=== PATIENT | female | born 1960 | race Caucasian/White ===

== ENCOUNTER 2019-11-16 13:01 | Outpatient (CLI) | payer OTHER, SELFPAY ==
--- NOTE | ~2019-11-16 | XR_ITS ---
EXAMINATION: XR knee LT 3V DATE: 11/16/2019 13:40 INDICATION: Left knee pain. TECHNIQUE: 3 views of left knee were obtained. COMPARISON: Left femur radiographs 03/22/2014 FINDINGS: Bone alignment is normal. No fracture. There is mild tricompartmental osteoarthritis. No kn ee joint effusion. There is anterior knee soft tissue swelling. IMPRESSION: 1. Mild left knee osteoarthritis. Reviewed, dictated and finalized at location A.
--- NOTE | ~2019-11-16 | US_ITS ---
EXAMINATION: US venous doppler [facility] DATE: 11/16/2019 13:57 INDICATION: Left lower limb pain. TECHNIQUE: Grayscale ultrasound images without and with compression and Doppler ultrasound images of the left lower extremity veins were obtained. COMPARISON: None. FINDINGS: The visualized portions of left common femoral vein, profunda (deep) femoral vein, femoral vein, popl iteal vein, peroneal veins, posterior tibial veins, and greater saphenous vein outflow are patent. IMPRESSION: 1. No deep venous thrombosis. Reviewed, dictated and finalized at location A.
== END 2019-11-16 13:02 | disposition home or self-care (01) ==
PROVIDERS: PCP Family Medicine; Visit Provider Physician Assistant
DX: M17.12 Unilateral primary osteoarthritis, left knee (principal); M79.89 Other specified soft tissue disorders
CPT/HCPCS: 73562; 93971

== ENCOUNTER 2023-03-03 13:34 | Outpatient (CLI) | payer OTHER, SELFPAY ==
[2023-03-03 19:25] LABS: Basophils Percent Auto 0.5 % (0.2-1.2); Eosinophils Absolute Auto 0.2 K/mm3 (0-0.3); Eosinophils Percent Auto 2.7 % (0-4.4); Hematocrit 40.4 % (37.0-47.0); Hemoglobin 12.8 g/dL (12.0-15.0); Immature Granulocyte Absolute 0.02 K/mm3 (0.00-0.031); Immature Granulocyte Percent A 0.3 % (0-0.5); Lymphocytes Absolute Auto 1.39 K/mm3 (0.9-3.2); Lymphocytes Percent Auto 23.5 % (18.3-44.2); Mean Corpuscular HGB Conc 31.7 g/dl (32-36); Mean Corpuscular Hemoglobin 29.7 pg (26-34); Mean Corpuscular Volume 93.7 fl (80-100); Mean Platelet Volume 10.8 fl (7.4-10.4); Monocytes Absolute Auto 0.5 K/mm3 (0.1-0.6); Monocytes Percent Auto 8.3 % (2.6-8.5); Neutrophils Absolute Auto 3.8 K/mm3 (1.3-6.7); Neutrophils Percent Auto 64.7 % (45.5-73.1); Platelet Count Result 273 k/mm3 (150-375); Red Blood Count 4.31 M/mm3 (4.2-5.4); Red Cell Distribution Width 13.1 % (11.5-14.5); White Blood Count 5.9 K/mm3 (4.5-10.0)
[2023-03-03 20:50] LABS: Alanine Aminotransferase 28 U/L (6-35); Albumin Level 4.5 g/dL (3.5-5.1); Alkaline Phosphatase 104 U/L (38-126); Anion Gap 8 mmol/L (8-16); Aspartate Amino Transferase 43 U/L (14-36); Bilirubin,Total 0.5 mg/dL (0.2-1.3); Blood Urea Nitrogen 14 mg/dL (7-17); Calcium 9.6 mg/dL (8.4-10.2); Carbon Dioxide 28 mmol/L (22-30); Chloride 103 mmol/L (98-107); Estimated Glomerular Filt Rate > 60; Glucose 99 mg/dL (65-110); Potassium 4.5 mmol/L (3.4-5.0); Sodium 139 mmol/L (137-145)
[2023-03-03 21:56] LABS: Folic Acid 13.5 ng/mL (2.76->20)
[2023-03-03 22:28] LABS: Hemoglobin A1C 5.4 % (<5.7)
== END 2023-03-03 13:35 | disposition home or self-care (01) ==
LOC: ANHGOSHLAB 13:36
PROVIDERS: PCP Internal Medicine; Visit Provider Nurse Practitioner
DX: E78.2 Mixed hyperlipidemia (principal); R42 Dizziness and giddiness; Z13.228 Encounter for screening for other metabolic disorders; Z86.2 Personal history of diseases of the blood and blood-forming organs and certain disorders involving the immune mechanism
CPT/HCPCS: 36415; 80053; 82607; 82728; 82746; 83036; 84443; 85025

== ENCOUNTER 2023-09-18 05:54 | Day surgery (SDC) | payer OTHER, SELFPAY ==
[2023-08-19 13:04] VITALS: BMI 37.7
[2023-09-18 06:49] VITALS: BP 135/88; PULSE 114; RESP 18; TEMP 36.2; O2SAT 98; BMI 35.6
[2023-09-18] MEDS: LACTATED RINGERS 1,000 ML 150 ML IV CONT (07:16)
--- NOTE | 2023-09-18 07:18 | PM.HPGS ---
History of Present Illness History of Present Illness Consent: Risks, benefits, and alternatives have been discussed and questions answered. Patient agrees to proceed with procedure. Chief complaint: Family history of colon cancer Narrative: Kimberly Gramajo is a 62 year old female referred for colonoscopy. Patient is father had colon cancer. Patient does have a history of a benign I am hamartomatous colon polyp removed from the colon 10 years ago. Exam 5 years ago was unremarkable. Patient reports her current weight appetite and bowel movements are normal. Patient is abdominal pain. Has had no bleeding. Patient presents today for screening colonoscopy. Review of Systems Review of Systems: All systems reviewed & are unremarkable except as noted in HPI and below PMFSH Past Medical History Medical History (Updated 09/18/23 @ 07:20 by Brandon Ponce MD) Hx of breast cancer Surgical History Surgical History (Updated 08/12/23 @ 15:01 by Bridgett Kulkarni NP) History of back surgery 2019 x 2 2018 History of bilateral ligation of fallopian tubes History of knee replacement (~2011) Family History Family History Grandparent Depression Mother Hypertension Family history of malignant neoplasm of ovary Father Acute myocardial infarction, Onset Age: 50 Carcinoma of colon, Onset Age: 69 Social History Social History Smoking status: Never smoker Alcohol intake: never Substance use type: does not use Living arrangements: with family Meds Home Medications and Allergies Home Medications Medication Instructions Recorded Confirmed Type anastrozole 1 mg tablet 1 mg PO .qhs 11/16/19 09/18/23 History naproxen 500 mg tablet 500 mg PO BID #60 tabs 12/29/20 09/18/23 Rx mecobalamin (vitamin B12) 1,000 1,000 mcg sublingual DAILY 04/16/23 09/18/23 History mcg disintegrating tablet,sublingual sumatriptan succinate 100 mg See Rx Instructions PO .COMPLEX #9 04/16/23 09/18/23 Rx tablet (Imitrex) tabs citalopram 40 mg tablet See Rx Instructions .Route 04/28/23 09/18/23 Rx .COMPLEX #90 tabs lamotrigine 200 mg tablet See Rx Instructions .Route 05/12/23 09/18/23 Rx .COMPLEX #90 tabs gabapentin 400 mg capsule 400 mg PO TID #270 caps 08/11/23 09/18/23 Rx trazodone 100 mg tablet 200 mg PO DAILY #180 tabs 08/12/23 09/18/23 Rx lisinopril 20 1 tablet PO DAILY #90 tabs 09/08/23 09/18/23 Rx mg-hydrochlorothiazide 12.5 mg tablet aspirin 81 mg capsule 81 mg PO DAILY 09/15/23 09/18/23 History alprazolam 0.5 mg tablet 0.5 mg PO BID #60 tabs 09/17/23 09/18/23 Rx Allergies Allergy/AdvReac Type Severity Reaction Status Date / Time Sulfa (Sulfonamide Allergy Mild LEG RASH Verified 09/18/23 06:40 Antibiotics) PROPOXYPHENE NAPSYLATE Allergy Unknown DEPRESSION Uncoded 09/18/23 06:40 Vital Signs Vital Signs - 24 hr 09/18/23 06:49 Temperature 97.2 F L Pulse Rate 114 H Respiratory Rate 18 Blood Pressure 135/88 Pulse Oximetry 98 Oxygen Delivery Room Air Exam Narrative: Physical exam reveals patient to be alert. No signs stable. HEENT exam is unremarkable. Patient is anicteric. Lungs are clear to auscultation and to percussion. Heart is without murmur or extra sounds. Abdomen bowel sounds are present soft nontender with no organomegaly. Digital external rectal exam normal. Assessment and Plan Assessment and plan (1) Screening for colon cancer: Code(s): Z12.11 - Encounter for screening for malignant neoplasm of colon Status: Acute Assessment and Plan: He has a distant history of a benign hamartoma of the colon. (2) Family history of colon cancer in father: Code(s): Z80.0 - Family history of malignant neoplasm of digestive organs Status: Acute Assessment and Plan: Father had colon cancer. Plan for screening colonoscopy a
--- NOTE | 2023-09-18 07:24 | WPDANESEPPF ---
Anes - Initial Pre Proc Eval Procedure: Operation Date: 09/18/23 08:00 Proposed Procedures p Diagnostic Colonoscopy - Brandon Ponce MD Date/Time: 09/18/23 07:24 Surgeon: Brandon Ponce MD Pre Op Diagnosis: Family history of colon cancer Patient Data Age: 62 Gender: F Height: 1.63 m Weight: 94.3 kg Last Vital Signs Temp 36.2 C L 09/18/23 06:49 Pulse 114 H 09/18/23 06:49 Resp 18 09/18/23 06:49 BP 135/88 09/18/23 06:49 Pulse Ox 98 09/18/23 06:49 O2 Del Method Room Air 09/18/23 06:49 Allergies Allergy/AdvReac Type Severity Reaction Status Date / Time Sulfa (Sulfonamide Allergy Mild LEG RASH Verified 09/18/23 06:40 Antibiotics) PROPOXYPHENE NAPSYLATE Allergy Unknown DEPRESSION Uncoded 09/18/23 06:40 Home Medications Medication Instructions Recorded Confirmed Type anastrozole 1 mg tablet 1 mg PO .qhs 11/16/19 09/18/23 History naproxen 500 mg tablet 500 mg PO BID #60 tabs 12/29/20 09/18/23 Rx mecobalamin (vitamin B12) 1,000 1,000 mcg sublingual DAILY 04/16/23 09/18/23 History mcg disintegrating tablet,sublingual sumatriptan succinate 100 mg See Rx Instructions PO .COMPLEX #9 04/16/23 09/18/23 Rx tablet (Imitrex) tabs citalopram 40 mg tablet See Rx Instructions .Route 04/28/23 09/18/23 Rx .COMPLEX #90 tabs lamotrigine 200 mg tablet See Rx Instructions .Route 05/12/23 09/18/23 Rx .COMPLEX #90 tabs gabapentin 400 mg capsule 400 mg PO TID #270 caps 08/11/23 09/18/23 Rx trazodone 100 mg tablet 200 mg PO DAILY #180 tabs 08/12/23 09/18/23 Rx lisinopril 20 1 tablet PO DAILY #90 tabs 09/08/23 09/18/23 Rx mg-hydrochlorothiazide 12.5 mg tablet aspirin 81 mg capsule 81 mg PO DAILY 09/15/23 09/18/23 History alprazolam 0.5 mg tablet 0.5 mg PO BID #60 tabs 09/17/23 09/18/23 Rx Patient hx anesthesia problems: none Family hx anesthesia problems: none Results Review: All pre-operative results and documents have been reviewed as part of the pre-operative evaluation. [facility] Past Medical History Medical History (Updated 09/18/23 @ 07:20 by Brandon Ponce MD) Hx of breast cancer Surgical History Surgical History History of back surgery 2019 x 2 2018 History of bilateral ligation of fallopian tubes History of knee replacement (~2011) Family History Family History Grandparent Depression Mother Hypertension Family history of malignant neoplasm of ovary Father Acute myocardial infarction, Onset Age: 50 Carcinoma of colon, Onset Age: 69 Social History Social History Smoking status: Never smoker Alcohol intake: never Substance use type: does not use Living arrangements: with family Anes - Eval Final PreProcedure Day of Procedure 09/18/23 07:24 Patient weight: normal Heart: regular rate and rhythm Lungs: clear to auscultation Airway: Mallampati scale class II Neurological: alert and oriented Last oral intake: >/= 8 hours ASA classification: III Emergent: no Anesthetic plan: proceed Anesthesia type and monitoring: general GIVS and standard monitoring Results Review: All pre-operative results and documents have been reviewed as part of the pre-operative evaluation. Informed Consent: The patient's anesthetic plan and its attendant risks and benefits were discussed with the patient/family/POA. Questions were solicited and answers provided to the satisfaction of the patient/family/POA.
[2023-09-18 07:58] VITALS: BP 82/45; PULSE 90; RESP 14; O2SAT 93
[2023-09-18 08:08] VITALS: BP 102/64; PULSE 89; RESP 16; O2SAT 94
[2023-09-18 08:18] VITALS: BP 110/75; PULSE 92; RESP 16; O2SAT 96
--- NOTE | 2023-09-18 08:20 | WPDANESPN ---
Anes - Prog Note Post-Op Date/Time: 09/18/23 08:20 Cardiovascular status: normal Respiratory status: normal Airway patency: baseline Mental status: baseline Post-Op hydration status: normal Vital Signs: Last Vital Signs Temp 36.2 C L 09/18/23 06:49 Pulse 89 09/18/23 08:08 Resp 16 09/18/23 08:08 BP 102/64 09/18/23 08:08 Pulse Ox 94 09/18/23 08:08 O2 Del Method Room Air 09/18/23 08:08 Pain Score (VAS): 0/10 I/O: Intake & Output 09/17/23 09/18/23 09/18/23 23:59 07:59 15:59 Intake Total 300 100 Balance 300 100 Patient Feedback: Patient satisfied with anesthetic care.
== END 2023-09-18 08:25 | disposition home or self-care (01) ==
PROVIDERS: PCP Nurse Practitioner; Visit Provider Internal Medicine Gastroenterology
PROC: 0DJD8ZZ Inspection of Lower Intestinal Tract, Via Natural or Artificial Opening Endoscopic (ICD-10-PCS; CPT 45378; principal; 2023-09-18 08:00)
DX: Z80.0 Family history of malignant neoplasm of digestive organs (principal)
CPT/HCPCS: 45378

== ENCOUNTER 2024-08-11 08:04 | Outpatient (CLI) | payer OTHER, SELFPAY ==
--- OUTSIDE RECORDS SUMMARY | 2024-08-11 08:09 | XMS_ITS ---
Author Organization [facility] Address [address] [place] [address] Care Team Providers Care D[employer]ified Crops Supervisor Name Role Phone Krissy Viveros MD Primary Care Provider Marychuy Pepe MD Unavailable [phone] Active Problems Problem Noted Date Diagnosed Date History of breast cancer 09/11/2019 Absence of breast, acquired, bilateral 0 Overview (08/25/2019): Added automatically from request for surgery [id number] Abdominal wall abscess at site of surgical wound 03/12/2019 Assessment & Plan (04/15/2019 7:55 PM WOOD MODEL BUILDER): Summary: 58 y.o. female w/PMH of R-TKA (2012), lumbar SF (2016) and breast cancer s/p L-mastectomy f/b immediate reconstruction w/flap (02/04/19), and recent admission for post-surgical abdominal Pseudomonas aeruginosa (moss-sensitive) wall abscess. Current antibiotic regimen is: Ciprofloxaxin 750 mg po q12h + Metronidazole 500 mg po q8h Start date: 03/12/2019 Due date: today Completed 3 weeks of therapy after drain removal on 03/22/19 Adverse effects from antibiotics: nausea/mild diarrhea. PLAN - Stop treatment regimen today -- firm stop - No need for further ID follow-up. RTC PRN Assessment & Plan (03/14/2019 11:48 AM WOOD MODEL BUILDER): 58 y.o. female w/PMH of R-TKA (2013), lumbar SF (2017) and recently diagnosed breast cancer s/p L-mastectomy f/b immediate reconstruction w/flap (02/04/19), now admitted with a post-surgical SSTI w/SC abscess. - CT A/P (03/11): 8x17x3 cm SC fluid collection with asscociated SC edema. - s/p MSK IRG-guided drain placement (03/12). - Fluid aspiration cx (03/12): pansensitIve Pseudomonas aeruginosa. PSAR post-surgical abdominal wall abscess w/drain in place for soruce control. Given that abscess are usually polymicrobial and anaerobes are the main bicycle taxi driver of abscesses, would favor metronidazole for anaerobic coverage along with PO cipro targeting the pansensitIve PSAR PLAN - discontinue ceftriaxone and vancomycin - start metronidazole 500 mg PO q8h - Recommend one dose of cefepime 2g IV while awaiting ECG to evaluate baseline QTc - If QTc < 500 ms, then would recommend a 3-4 week course of antimicrobials (up to one week after drain removal) with: --> Ciprofloxacin 750 mg PO q12h --> Metronidazole 500 mg PO q8h - Scheduled per IR to get drain check on 03/22. - Thank-you for the opportunity to participate in the care of this patient. Infectious Diseases will sign off and arrange follow-up in the ID clinic in 2-3 weeks. Please contact the Team 3 ID Attending at [phone] with any questions or concerns. After hours, the ID fellow long distance billing operator can be reached at [phone]. Malignant neoplasm of left b reast in female, estrogen receptor positive 01/11/2019 Cancer Staging:Pathologic:Stage IA(pT1b, pN0, cM0, G1, ER+, GA+, HER2-) - Signed by Marychuy Pepe MD on 03/08/2019 Overview (01/11/2019): Added automatically from request for surgery [id number] Acquired absence of left breast and nipple 01/11 Overview (02/06/2019): Added automatically from request for surgery [id number] Bipolar 1 disorder 12/30/2018 Preoperative clearance 12/30/2018 Abnormal mammogram of left breast 11/26/2018 Spondylolisthesis of lumbosacral region 09/02/19 18 Facet arthropathy, lumbosacral 08/18/2016 Right sided sciatica 08/18/2016 Disc degeneration, lumbar 03/31/2016 Current Treatment and Therapy Plans No current plan information found. Past Treatment and Therapy Plans No past plan information found. Lifetime Dose Tracking * Chemical Lifetime Dose Automatic Entry Manual Entr y Fluoro Time 1.1 minutes 1.1 minutes 0 minutes Air kerma at the reference point (Ka,r) 7 mGy 7 mGy 0 mGy
--- OUTSIDE RECORDS SUMMARY | 2024-08-11 08:09 | XMS_ITS | Referral Summary ---
Author Organization [facility] Address [address] [place] [address] Care Team Providers Care Pick Remover Name Role Phone Krissy Viveros MD Primary Care Provider [phone] Marychuy Pepe MD Unavailable [phone] Encounters Date Type Department Care Team Description 06/11/2024 Results Follow-Up [facility] Surgery [address] [place] [phone] Kimberly Ventura NP 06/11/2024 12:00 PM CDT - 06/11/2024 11:59 PM CDT Hospital Encounter [facility] - Breast Imaging [address] [place] [phone] History of breast cancer Discharge Disposition: Discharge to home or self care 06/11/2024 10:11 AM CDT - 06/11/2024 11:59 PM CDT Hospital Encounter [facility] [address] [place] [phone] History of breast cancer Discharge Disposition: Discharge to home or self care 06/11/2024 11:30 AM CDT Office Visit [facility] Surgery [address] [place] [phone] Kimmie Gordon NP Encounter for follow-up surveillance of breast cancer (Primary Dx); Encounter for screening mammogram for malignant neoplasm of breast; History of breast cancer 05/17/2024 Telephone [facility] Surgery [address] [place] [phone] Katie Rosa, RMA from Last 3 Months Allergies Active Allergy Reactions Criticality Noted Date Comments Sulfa (Sulfonamide Antibiotics) Rash Medium 07/30 Medications lamoTRIgine (LaMICtal) 200 mg tabletIndicatio ns:Depression associated with Bipolar Disorder Take 1 tablet (200 mg total) by mouth every morning 3 9 Active gabapentin (NEURONTIN) 400 mg capsuleIndicati ons:Neuropathic Pain Take 1 capsule (400 mg total) by mouth 3 times daily Active propranolol (INDERAL) 20 mg tabletIndicatio ns:hypertension ,Migraine Prevention Take 1 tablet (20 mg total) by mouth 2 (two) times a day 2 9 Active traZODone (DESYREL) 100 mg tabletIndicatio ns:major depressive disorder Take 1.5 tablets (150 mg total) by mouth nightly 2 9 Active aspirin 81 mg enteric coated tablet Take 1 tablet (81 mg total) by mouth daily 30 tablet 11 9 Active Additional Information Patient taking differently:81 mg oralEvery morning, Indications: Myocardial Reinfarction Prevention, Informant: Self, Reported on 09/07/2019 calcium phosphate trib/vit D3 (CALTRATE GUMMY BITES ORAL) Take 1 tablet/chew tab by mouth 2 (two) times a day Active clindamycin (CLEOCIN T) 1 % lotion Apply 60 Applications topically 2 (two) times a week 2 Active ALPRAZolam (XANAX) 0.5 mg tablet Take 1 tablet (0.5 mg total) by mouth daily 2 Active citalopram (CeleXA) 40 mg tablet Take 1 tablet (40 mg total) by mouth daily 2 Active lisinopril-hydr oCHLOROthiazide (ZESTORETIC) 20-12.5 mg per tablet Take 1 tablet by mouth daily 4 Active predniSONE (DELTASONE) 10 mg tablet Take 1 tablet (10 mg) by mouth daily 4 Active anastrozole (ARIMIDEX) 1 mg tabletIndicatio ns:Malignant neoplasm of left breast in female, estrogen receptor positive, unspecified site of breast (HCC) Take 1 tablet (1 mg total) by mouth daily 90 tablet 3 4 12/10/19 25 Active Active Problems Problem Noted Date Diagnosed Date History of breast cancer 09/11/2019 Absence of breast, acquired, bilateral 0 Overview (08/25/2019): Added automatically from request for surgery [id number] Abdominal wall abscess at site of surgical wound 03/12/2019 Assessment & Plan (04/15/2019 7:55 PM VP PUBLIC RELATIONS): Summary: 58 y.o. female w/PMH of R-TKA [...] PRN Assessment & Plan (03/14/2019 11:48 AM VP PUBLIC RELATIONS): 58 y.o. female w/PMH of R-TKA (2012), lumbar SF (2016) and recently diagnosed breast cancer s/p L-mastectomy [...] usually polymicrobial and anaerobes are the main show horse driver of abscesses, would favor metronidazole for [...] contact the Team 3 ID Attending at [phone] with any questions or concerns. After hours, the ID fellow pediatric oncology nurse can be reached at [phone]. Malignant neoplasm of left b reast in female, estrogen receptor positive 01/11/2019 Cancer Staging:Pathologic:Stage IA(pT1b, pN0, cM0, G1, ER+, WV+, HER2-) - Signed by Marychuy Pepe MD on 03/08/2019 Overview (01/11/2019): Added automatically from request for surgery [id number] Acquired absence of left breast and nipple 01/11 Overview (02/06/2019): Added automatically from request for surgery [id number] Bipolar 1 disorder 12/30/2018 Preoperative clearance 12/30/2018 Abnormal mammogram of left breast 11/26/2018 Spondylolisthesis of lumbosacral region 09/02/19 18 Facet arthropathy, lumbosacral 08/18/2016 Right sided sciatica 08/18/2016 Disc degeneration, lumbar 03/31/2016 Immunizations Immunization Administration Dates Next Due Influenza, Quadrivalent, Yany l Culture-based MDCK, Preservative Free, Antibiotic Free, Intramuscular 04/13/2019 Influenza, Quadrivalent, Spl it, Preservative Free, Intramuscular 01/27/2020,12/15/2013 Influenza, Trivalent, IM (MDV) 12/30/2015 Td, adsorbed 10/19/2018 Social History Tobacco Use Types Packs/Day Years Used Date Smoking Tobacco: Never Smokeless Tobacco: Never Tobacco Cessation:Counseling Given: Not Answered Alcohol Use Standard Drinks/Week Comments Yes 0 (1 standard drink = 0.6 oz pur e alcohol) rare AUDIT-C Answer Date Recorded Frequency of Alcohol Consumption 2-4 times a fri12/17/2018 Average Number of Drinks Not on file 019 Frequency of Binge Drinking Not on file 11/29 Comments No Sex and Gender Information Value Date Recorded Sex Assigned at Not on file Legal Sex Female 12:14 AM VP PUBLIC RELATIONS Gender Identity Female 08/23/2020 11:17 AM CDT Sexual Orientation Straight 08/23/2020 11 :17 AM CDT Last Filed Vital Signs Vital Sign Reading Time Taken Comments Blood Pressure 143/89 01/30/2024 3:09 PM CDT Pulse 96 01/30/2024 3:09 PM CDT Temperature 36.7 C (98.1 F) 01/30/2024 3:09 PM CDT Respiratory Rate 19 10/31/2023 1:39 PM CDT Oxygen Saturation 97% 01/30/2024 3:09 PM CDT Inhaled Oxygen Concentration - - Weight 95.3 kg (210 lb) 06/11/2024 12:46 PM CDT Height 160 cm (5' 3 ) 06/11/2024 12:46 PM CDT Body Mass Index 37.2 06/11/2024 12:46 PM CDT Plan of Treatment Not on file Medical Devices Implanted Type Area Marine Diesel Mechanic Device Identifier Shelf Expiration Date Model / Serial / Lot Rt Total Knee Arthroplasty Right: Knee [employer] [id number] [place] Microvascular 2.5mm Ring Pin Protective Cover Jaw Assembly Latex Free - [id number] Implanted:Qty: 1 on 02/04/2019 by Gene Sultana MD at [facility] Left: Breast [employer] [facility] 11/25/2023 [id number] / / [id number] [employer] [id number] [place] Microvascular 2mm Ring Pin Protective Cover Jaw Assembly Latex Free - [id number] Implanted:Qty: 1 on 02/04/2019 by Gene Sultana MD at [facility] Left: Breast [employer] [facility] 11/12/2023 [id number] / / [id number] [employer] [id number] [place] Microvascular 2mm Ring Pin Protective Cover Jaw Assembly Latex Free - [id number] Implanted:Qty: 1 on 02/04/2019 by Gene Sultana MD at [facility] Left: Breast [place] [employer] [place] [id number] 07/30/2023 [id number] / / [id number] [employer] [place]ian [id number] [place] 2mm Ring Pin Ultrasonic Doppler 20mhz Administrative Support Specialist Anastomosis Latex Free - [id number] Implanted:Qty: 1 on 02/04/2019 by Gene Sultana MD at [facility] Left: Breast [employer] [place] [id number] 11/18/2023 [id number] / / [id number] Description:Not an ultrasoni c doppler, this is a GEM Clip Procedures Procedure Name Priority Date/Time Associated Diagnosis Comments SCREENING MAMMOGRAM RIGHT W PHILIPP UNILATERAL ONLY Schedule Routine, Read Routine (OP Routine) 06/11/2024 1:24 PM CDT History of breast cancer MRI BREAST BILATERAL W WO CONTRAST Schedule Routine, Read Routine (OP Routine) 06/11/2024 12:05 PM CDT History of breast cancer from Last 3 Months Results * Screening Mammogram Right W Philipp Unilateral Only (06/11/2024 1:24 PM CDT) Anatomical Region Laterality Modality Breast Right Mammography Narrative 06/14/2024 7:49 AM CDT Mammogram Technique: Right Breast Digital Breast Tomosynthesis, Unilateral C-view 2D Screening mammogram. Views obtained: right craniocaudal and right mediolateral oblique. Computer Aided Detection was performed. Mammogram Findings: The present examination has been compared to prior imaging studies performed at [facility] on 02/17/2020, 04/26/2021, 06/05/2022 and 06/11/2023. The breast is almost entirely fatty. There is no suspicious abnormality in the right breast. There are no significant changes from the prior study. Patient has personal history of reduction mammoplasty in the right breast. There is no suspicious abnormality in the right breast. Patient status post contralateral mastectomy for personal history of breast cancer. Impression: There is no mammographic evidence of malignancy. Annual screening mammography is recommended. OVERALL FINAL ASSESSMENT: BI-RADS CATEGORY 2: Benign. Procedure Note Nikki Erwin MD - 06/14/2024 Mammogram Technique: Right Breast Digital Breast Tomosynthesis, Unilateral C-view 2DScreening mammogram. Views obtained: right craniocaudal and right mediolateral oblique. Computer Aided Detection was performed. Mammogram Findings: The present examination has been compared to prior imaging studies performed at [facility] on 02/17/2020, 04/26/2021,06/05/2022 and 06/11/2023. The breast is almost entirely fatty. There is no suspicious abnormality in the right breast. There are no significant changes from the prior study. Patient has personal history of reduction mammoplasty in the rightbreast. There is no suspicious abnormality in the right breast. Patient status post contralateral mastectomy for personal history ofbreast cancer. Impression: There is no mammographic evidence of malignancy. Annual screening mammography is recommended. OVERALL FINAL ASSESSMENT: BI-RADS CATEGORY 2: Benign. Kimmie Gordon NP IM MAMMO PROCEDURES Final Res ult * MRI Breast Bilateral W WO Contrast (06/11/2024 12:05 PM CDT) Anatomical Region Laterality Modality Breast Bilateral Magnetic Resonan ce 06/11/2024 1:24 PM CDT Impressions 06/11/2024 1:24 PM CDT 1. No suspicious enhancement in either breast. OVERALL FINAL ASSESSMENT: BI-RADS Category 2: Benign. RECOMMENDATION: Annual screening mammography, with screening breast MRI if clinically indicated, are recommended. Electronically signed by: Rhonda Marrufo M.D. Narrative 06/11/2024 1:24 PM CDT EXAMINATION: 1. MRI EXAMINATION OF THE BREASTS WITH AND WITHOUT CONTRAST 2. 3D POST PROCESSING ON A DEDICATED 3D WORKSTATION HISTORY: There is screening, patient is a 62-year-old woman who had prior left mastectomy and reconstruction for left breast cancer in 2019. Patient has also had a right breast reduction. Patient is also here for short-term interval follow-up of an MRI finding in the right breast. TECHNIQUE: MRI examination of the breasts per breast tumor protocol with and without gadolinium contrast. A dedicated breast imaging coil was used. The images were transferred to a breast CAD system for 3D post processing and contrast kinetics analysis. CONTRAST: Gadoterate meglumine, 16 ml COMPARISON: 12/12/2023, mammogram dated 06/11/2023 BREAST COMPOSITION: Almost entirely fat BACKGROUND PARENCHYMAL ENHANCEMENT: Minimal FINDINGS: There is no suspicious enhancement in either breast. The previously noted focus of enhancement in the upper central right breast does not enhance on today's examination. Postsurgical changes of right breast reduction and left mastectomy with soft tissue flap reconstruction are noted. No abnormally enlarged lymph nodes are identified in the visualized portions of either axilla. Procedure Note Rhonda Marrufo MD - 06/11/2024 EXAMINATION: 1. MRI EXAMINATION OF THE BREASTS WITH AND WITHOUT CONTRAST 2. 3D POST PROCESSING ON A DEDICATED 3D WORKSTATION HISTORY: There is screening, patient is a 62-year-old woman who had prior left mastectomy and reconstruction for left breast cancer in 2019. Patient has also had a right breast reduction. Patient is also here for short-term interval follow-up of an MRI finding in the right breast. TECHNIQUE: MRI examination of the breasts per breast tumor protocol with and without gadolinium contrast. A dedicated breast imaging coil was used. The images were transferred to a breast CAD system for 3D post processing and contrast kinetics analysis. CONTRAST: Gadoterate meglumine, 16 ml COMPARISON: 12/12/2023, mammogram dated 06/11/2023 BREAST COMPOSITION: Almost entirely fat BACKGROUND PARENCHYMAL ENHANCEMENT: Minimal FINDINGS: There is no suspicious enhancement in either breast. The previously noted focus of enhancement in the upper central right breast does not enhance on today's examination. Postsurgical changes of right breast reduction and left mastectomy with soft tissue flap reconstruction are noted. No abnormally enlarged lymph nodes are identified in the visualized portions of either axilla. IMPRESSION: 1. No suspicious enhancement in either breast. OVERALL FINAL ASSESSMENT: BI-RADS Category 2: Benign. RECOMMENDATION: Annual screening mammography, with screening breast MRI if clinically indicated, are recommended. Electronically signed by: Rhonda Marrufo M.D. Kimberly Ventura NP IMG MRI PROCEDURES Final R esult from Last 3 Months Insurance [facility] CHOICE [facility] HMO/PPO Address: [id number] [place] [address] [facility] CHOICE PLUS [facility] H[facility]/PPO Address: [place] [address] [facility] HMO [facility] HMO Advance Directives For more information, please contact: [phone] Documents on File Type Date Recorded Patient Primary Teaching Assistant Expl anation Advance Directives and Livin g Will 06/11/2024 10:10 AM * Full Code (Latest Code Status on File) Date Activated Date Inactivated Comments 03/22/2019 10:20 AM 03/22/2019 5:07 PM * Full Code Date Activated Date Inactivated Comments 03/11/2019 10:48 PM 03/14/2019 10:36 PM * Full Code Date Activated Date Inactivated Comments 02/04/2019 6:44 PM 02/10/2019 3:38 PM Care Teams Pick Remover Relationship Specialty Start Date End Date Krissy Viveros MD [address] [place] [address] PCP - General 08/26/17 Marychuy Pepe MD [address] [place] [address] Medical Oncologist/Mica Spreader Medical Oncology 11/11/19
--- OUTSIDE RECORDS SUMMARY | 2024-08-11 08:09 | XMS_ITS | Clinical Summary ---
Author Organization [facility] Art Qual[facility] Address [address] [place] [address] Care Team Providers Care Strength And Conditioning Coach Name Role Phone Krissy Viveros MD Primary Care Provider [phone] Source Comments [facility],non-owned Affiliates and Associated Physician Practices is amultiple site organization consisting of ambulatory clinics and hospital sitesin [place], [place], [place] and [place]. This disclosure is being madepursuant to the Care Everywhere program and may not contain all information available regarding this patient. Last updated 17.[facility] Allergies Active Allergy Reactions Criticality Noted Date Comments Sulfa Drugs Rash Medium 06/12/2017 Social History Tobacco Use Types Packs/Day Years Used Date Smoking Tobacco: Never Assessed Sex and Gender Information Value Date Recorded Sex Assigned at Not on file Legal Sex Male 12:31 PM [employer] Gender Identity Not on file Sexual Orientation Not on file Plan of Treatment Health Maintenance Due Date Last Done Comments COLOGUARD (AGES 45-75) - COL ON CA SCREENING 1961 COLON MONITORING 1961 COLONOSCOPY - COLON CA SCREENING 1961 CT COLONOGRAPHY - COLON CA SCREENING 1961 Colorectal Cancer Screening 1961 FIT - COLON CA SCREENING 1961 FLEX SIG - COLON CA SCREENING 1961 LIPID TESTING 1961 HIV SCREENING 1976 HEPATITIS C SCREENING 12/14/1979 DTAP/TDAP/TD VACCINES (1 - Tdap) 1980 PNEUMOCOCCAL VACCINE 50+ (1 of 1 - PCV) 12/19/2011 ZOSTER VACCINE (1 of 2) 12/19/2011 COVID-19 VACCINE ( - 2023-2 5 season) 2023 DEPRESSION SCREENING 03/31/2024 INFLUENZA VACCINE (Season Ended) 2024 Respiratory Syncytial Virus (RSV) Vaccine Pt: or over 60 yrs (1 - 1-dose 75+ series) 2036 HEPATITIS B VACCINE Aged Out No longe r eligible based on patient's age to complete this topic HIB VACCINE Aged Out No longer eligi ble based on patient's age to complete this topic HPV VACCINE Aged Out No longer eligi ble based on patient's age to complete this topic MENINGOCOCCAL (Group B) VACC INE SHARED DECISION-MAKING Aged Out No longer eligibl e based on patient's age to complete this topic MENINGOCOCCAL GROUPS A/C/Y/W VACCINE Aged Out No longer eligible b ased on patient's age to complete this topic Insurance [facility] Care Teams Strength And Conditioning Coach Relationship Specialty Start Date End Date Krissy Viveros MD PCP - General Family Medicine 03/19/12
--- OUTSIDE RECORDS SUMMARY | 2024-08-11 08:09 | XMS_ITS ---
(Home) [address] [place] [address] [facility] CHOICE [facility] HMO/PPO Address: [address] [address] [place] [address] [facility] HMO [facility] O Advance Directives For more information, please contact: [phone] Documents on File Type Date Recorded Patient Supervisor Bindery Expl anation Advance Directives and Livin g Will 06/11/2024 10:10 AM * Full Code (Latest Code Status on File) Date Activated Date Inactivated Comments 03/22/2019 10:20 AM 03/22/2019 5:07 PM * Full Code Date Activated Date Inactivated Comments 03/11/2019 10:48 PM 03/14/2019 10:36 PM * Full Code Date Activated Date Inactivated Comments 02/04/2019 6:44 PM 02/10/2019 3:38 PM Care Teams Pizza Maker Relationship Specialty Start Date End Date Krissy Viveros MD [address] [place] [address] PCP - General 08/26/17 Marychuy Pepe MD [address] [place] [address] Medical Oncologist/Solder Making Supervisor Medical Oncology 11/11/19 Clinical Summary Created on: August 11, 2024 Kimberly Vicotria : 1960 Sex: Female Author Organization [facility] Address [address] [place] [address] Care Team Providers Care Pizza Maker Name Role Phone Krissy Viveros MD Primary Care Provider [phone] Marychuy Pepe MD Unavailable [phone] Allergies Active Allergy Reactions Criticality Noted Date [...] (08/25/2019): Added automatically from request for surgery [id number] Abdominal wall abscess at site of surgical wound 03/12/2019 Assessment & Plan (04/15/2019 7:55 PM BOUFFANT CURTAIN MACHINE TENDER): Summary: 58 y.o. female w/PMH of R-TKA [...] PRN Assessment & Plan (03/14/2019 11:48 AM BOUFFANT CURTAIN MACHINE TENDER): 58 y.o. female w/PMH of R-TKA (2012), [...] usually polymicrobial and anaerobes are the main milk wagon driver of abscesses, would favor metronidazole for [...] contact the Team 3 ID Attending at [phone] with any questions or concerns. After hours, the ID fellow airfield operations specialist can be reached at [phone]. Malignant neoplasm of left b reast in female, estrogen receptor positive 01/11/2019 Cancer Staging:Pathologic:Stage IA(pT1b, pN0, cM0, G1, ER+, DE+, HER2-) - Signed by Marychuy Pepe MD on 03/08/2019 Overview (01/11/2019): Added automatically from request for surgery [id number] Acquired absence of left breast and nipple 01/11 Overview (02/06/2019): Added automatically from request for surgery [id number] Bipolar 1 disorder 12/30/2018 Preoperative clearance 12/30/2018 Abnormal mammogram of left breast 11/26/2018 Spondylolisthesis of lumbosacral region 09/02/19 18 Facet arthropathy, lumbosacral 08/18/2016 Right sided sciatica 08/18/2016 Disc degeneration, lumbar 03/31/2016 Encounters Date Type Department Care Team Description 06/11/2024 12:00 PM CDT - 06/11/2024 11:59 PM CDT Hospital Encounter [facility] - Breast Imaging [address] [facility] [address] [place] [address] History of breast cancer Discharge Disposition: Discharge to home or self care 06/11/2024 11:30 AM CDT Office Visit [facility] Surgery [address] [place] [address] [address] [place] [phone] Kimmie Gordon, AAKASH Encounter for follow-up surveillance of breast cancer (Primary Dx); Encounter for screening mammogram for malignant neoplasm of breast; History of breast cancer 06/11/2024 10:11 AM CDT - 06/11/2024 11:59 PM CDT Hospital Encounter [facility] [address] [place] [address] History of breast cancer Discharge Disposition: Discharge to home or self care 06/11/2024 Results Follow-Up [facility] Surgery [address] [place] [address] [address] [place] [phone] Kimberly Ventura NP 05/17/2024 Telephone [facility] Surgery [address] [place] [phone] Katie Rosa RMA from Last 3 Months Immunizations Immunization Administration Dates Next Due Influenza, Quadrivalent, Yany l Culture-based MDCK, Preservative Free, Antibiotic Free, Intramuscular 04/13/2019 Influenza, Quadrivalent, Spl it, Preservative Free, Intramuscular 01/27/2020,12/15/2013 Influenza, Trivalent, IM (MDV) 12/30/2015 Td, adsorbed 10/19/2018 Surgical History Surgery Date Site/Laterality Comments SPINAL FUSION 03/31/2016 - 03/30/2017 lumbar REPLACEMENT TOTAL KNEE 03/31/2011 - 03/30/2012 Right TUBAL LIGATION 03/31/1987 - 03/30/1988 BREAST BIOPSY 12/04/2018 Left BACK SURGERY 03/31/2018 - 04/30/2018 FLUID DRAIN SOFT TISSUE 03/12/2019 N/A ABSCESS CATHETER INJECTION 03/22/2019 N/A RECONSTRUCTION BREAST W/ TRA M FLAP 02/04/2019 Left Mastectomy BREAST SURGERY 02/04/2019 Left Exploration BREAST SURGERY 02/08/2019 Left Debridement Medical History Medical History Date Comments Hypertension Headache Arthritis Bipolar disorder (HCC) Breast cancer (HCC) left Migraine headache PONV (postoperative nausea and vomiting) controlled with medication Family History Medical History Relation Name Comments Kidney disease Daughter Family histor y of kidney disease - (Added by TW Conv) Colon cancer Father Family history of malignant neoplasm - (Added by TW Conv) Heart disease Father onset age late 40s Mental illness Maternal Grandfather FH: m ental illness - Relation: Grandfather (Added by Conv) Prostate cancer Maternal Grandfather Ovarian cancer Mother Family histor y of malignant neoplasm - (Added by TW Conv) Prostate cancer Mother's Brother Heart disease Other Family history of cardiac disorder - Relation: Grandmother (Added by TW Conv) Seizures Sister 1 Family history of seizures - (Added by TW Conv) Alcohol abuse Sister 2 Family history of alcoholism - (Added by Conv) Anesthesia problems Neg Hx Relation Name Status Comments Daughter Father Maternal Grandfather Mother Mother's Brother Other Sister 1 Sister 2 Social History Tobacco Use Types Packs/Day Years [...] on file Legal Sex Female 12:14 AM BOUFFANT CURTAIN MACHINE TENDER Gender Identity Female 08/23/2020 11:17 AM CDT Sexual Orientation Straight 08/23/2020 11 :17 AM CDT Obstetrics History Para Term AB IAB SAB Ectopic Multiple Livin g Live Births 2 2 2 Date Outcome GA Total Labor Labor/2nd/3rd Weight Sex Type Anes PTL Corry A1 A5 Name Clin Para Para Last Filed Vital Signs Vital Sign Reading [...] 06/11/2024 12:46 PM CDT Plan of Treatment Health Maintenance Due Date Last Done Comments Cervical Cancer Screening 1960 Colon Cancer Screening-Colonoscopy 1960 Depression Screening 1960 Hepatitis C Screening 1960 Hepatitis B Screening 12/19/1979 Regular Well Visit/Exam 18-64 12/19/1979 Pneumococcal vaccine <65 (1 of 2 - PCV) 1980 Zoster Vaccine (1 of 2) 1980 DTaP/Tdap/Td Vaccine (1 - Tdap) 10/20/2018 9 Influenza Vaccine (Season Ended) 2024 01/27/2020, 04/13/2019, 12/30/2015, Additional history exists Breast Cancer Screening-Mammogram 06/11/2025 06/11/2024, 06/11/2023, 06/05/2022, Additional history exists Medical Devices Implanted Type Area Movers Device Identifier Shelf Expiration Date Model / Serial / Lot Rt Total Knee Arthroplasty Right: Knee Synovis [employer] Allian [id number] Beckham Microvascular 2.5mm Ring Pin Protective Cover Jaw Assembly Latex Free - [id number] Implanted:Qty: 1 on 02/04/2019 by Gene Sultana MD at [facility] Left: Breast Synovis Micro [employer]Reef Allian 11/25/2023 [id number] / / [id number] [employer]is [employer] Allian [id number] Beckham Microvascular 2mm Ring Pin Protective Cover Jaw Assembly Latex Free - [id number] Implanted:Qty: 1 on 02/04/2019 by Gene Sultana MD at [facility] Left: Breast Synovis Micro [employer]Re[employer] Allian 11/12/2023 [id number] / / [id number] Synovis [employer] Allian [id number] Beckham Microvascular 2mm Ring Pin Protective Cover Jaw Assembly Latex Free - [id number] Implanted:Qty: 1 on 02/04/2019 by Gene Sultana MD at [facility] Left: Breast Synovis Micro [employer]Reef Allian [id number] 07/30/2023 [id number] / / [id number] OnetoOnetext Allian [id number] Beckham 2mm Ring Pin Ultrasonic Doppler 20mhz Pickle Water Pump Operator Anastomosis Latex Free - [id number] Implanted:Qty: 1 on 02/04/2019 by Gene Sultana MD at [facility] Left: Breast OnetoOnetext Taina [id number] 11/18/2023 [id number] / / [id number] Description:Not an ultrasoni c doppler, this is [...] compared to prior imaging studies performed at [facility] on 02/17/2020, 04/26/2021, 06/05/2022 and 06/11/2023. The [...] compared to prior imaging studies performed at [facility] on 02/17/2020, 04/26/2021,06/05/2022 and 06/11/2023. The breast [...] by: Rhonda Marrufo M.D. Kimberly Ventura NP IM MRI PROCEDURES Final R esult from Last 3 Months Insurance [facility] CHOICE [facility] H[facility]/PPO Address: [place] [address]
--- OUTSIDE RECORDS SUMMARY | 2024-08-11 08:09 | XMS_ITS | Encounter Summary ---
Author Organization [facility] Address [address] [facility] [address] [place] [address] Phone Care Team Providers Care Manager Ambulatory Name Role Phone Krissy Viveros MD Primary Care Provider [phone] Marychuy Pepe MD Unavailable [phone] Encounter Details Date Type Department Care Team (Late st Contact Info) Description 06/11/2024 Results Follow-Up [facility] Surgery [address] [facility] Floor [address] [place] [address] Kimberly Ventura NP [address] [facility] [id number] [place] [address] Social History Tobacco Use Types Packs/Day Years Used Date Smoking Tobacco: Never Smokeless Tobacco: Never Alcohol Use Standard Drinks/Week Comments Yes 0 [...] on file Legal Sex Female 12:14 AM COMMUNICATIONS TECH Gender Identity Female 08/23/2020 11:17 AM CDT Sexual Orientation Straight 08/23/2020 11 :17 AM CDT documented as of this encounter Plan of Treatment Not on file documented as of this encounter Visit Diagnoses Not on filedocumented in this encounter Care Teams Manager Ambulatory Relationship Specialty Start Date End Date Krissy Viveros MD [address] [place] [address] PCP - General 08/26/17 Marychuy Pepe MD [address] [facility] [address] [place] [address] Medical Oncologist/Bullet Swaging Machine Operator Medical Oncology 11/11/19 documented as of this encounter
--- OUTSIDE RECORDS SUMMARY | 2024-08-11 08:09 | XMS_ITS | Clinical Summary ---
Author Organization [facility] Address [address] [place] [address] Phone Care Team Providers Care Corncob Pipe Supervisor Name Role Phone Sanjeev Viveros MD Primary Care Provider [phone] Allergies Active Allergy Reactions Criticality Noted Date Comments Sulfa (Sulfonamide Antibiotics) Rash Low 07/30 Medications citalopram (CeleXA) 40 mg tablet Take 40 mg by mouth daily. Active traZODone (DESYREL) 150 mg tablet Take 150 mg by mouth daily at bedtime. Active propranolol (INDERAL) 20 mg tablet Take 20 mg by mouth 2 times daily . Active ALPRAZolam (XANAX) 0.5 mg tablet Take 1 mg by mouth nightly as needed for Anxiety. Active lamoTRIgine (LaMICtal) 200 mg tablet Take 200 mg by mouth daily. Active fish oil-omega-3 fatty acids 340-1,000 mg Capsule Take 1 Capsule by mouth daily. Active ondansetron (ZOFRAN ODT) 4 mg Tablet, Rapid Dissolve Take 1 Tablet (4 mg) by mouth every 6 hours as needed for Nausea/Emesis Dissolve tablet on top of tongue, then swallow with saliva.. 30 Tablet 09/04/2017 Active gabapentin (NEURONTIN) 400 mg capsule Take 400 mg by mouth 3 times daily. Active oxyCODONE-aceta minophen (PERCOCET) 5-325 mg tablet Take 1-2 Tablets by mouth every 4 hours as needed for Pain. Max Daily Amount: 12 Tablets 60 Tablet 04/28/2018 Active Active Problems Problem Noted Date Diagnosed Date Spondylolisthesis of lumbosacral region 09/02/19 18 Facet arthropathy, lumbosacral 08/18/2016 Lumbar disc disease with radiculopathy 7 Right sided sciatica 08/18/2016 Disc degeneration, lumbar 03/31/2016 Bipolar 1 disorder Preoperative clearance Immunizations Immunization Administration Dates Next Due INFLUENZA VACCINE QUADRIVALENT 3 YR UP PF IM Influenza Seasonal Unspecified Formulation IM Social History Tobacco Use Types Packs/Day Years Used Date Smoking Tobacco: Never Smokeless Tobacco: Never Alcohol Use Standard Drinks/Week Comments Yes 0 (1 standard drink = 0.6 oz pur e alcohol) rare Comments No Sex and Gender Information Value Date Recorded Sex Assigned at Not on file Legal Sex Female 6:14 PM CDT Gender Identity Not on file Sexual Orientation Not on file Last Filed Vital Signs Vital Sign Reading Time Taken Comments Blood Pressure 109/67 04/28/2018 4:43 AM ORTHOTIC PRACTITIONER Pulse 74 04/28/2018 4:43 AM ORTHOTIC PRACTITIONER Temperature 36.4 C (97.6 F) 04/28/2018 4:43 AM ORTHOTIC PRACTITIONER Respiratory Rate 18 04/28/2018 4:43 AM ORTHOTIC PRACTITIONER Oxygen Saturation 96% 04/28/2018 4:43 AM ORTHOTIC PRACTITIONER Inhaled Oxygen Concentration - - Weight 90.7 kg (200 lb) 04/27/2018 11:47 AM ORTHOTIC PRACTITIONER Height 162.6 cm (5' 4 ) 04/27/2018 11:47 AM ORTHOTIC PRACTITIONER Body Mass Index 34.33 04/27/2018 11:47 AM ORTHOTIC PRACTITIONER Plan of Treatment Health Maintenance Due Date Last Done Comments DTAP/TDAP/TD VACCINES (1 - Tdap) 1980 HPV/Cotest (21-29) 1982 CERVICAL CANCER SCREENING 12/19/1991 HPV/Cotest (30-65) 12/19/1991 PAP SMEAR 12/19/1991 BREAST CANCER SCREENING 2001 COLORECTAL SCREENING 2006 Colorectal Cancer Screening 2006 FIT-DNA Q 3 years 2006 FIT/FOBT Q 1 year 2006 Flex Sig/CT Colonography Q 5 years 2006 ZOSTER VACCINE (1 of 2) 12/19/2011 INFLUENZA VACCINE (#1) 2023 12/30/2015, 2013 RSV VACCINE (60+ or ) (1 - 1-dose 75+ series) 2036 Medical Devices Implanted Type Area Polygraph Technician Device Identifier Shelf Expiration Date Model / Serial / Lot Divergence-L Anterior/Obl ique Lumbar Fusion System Implanted:Qt y: 1 on 09/01/2017 by Devonte Barahona MD at [facility] Cage N/A: Spine Lumbar MEDTRONIC- SOFAMOR DANEK [id number] 10/11/2022 [id number] / / [id number] Description:REQUISITION# 792 [id number] Hemostatic Surgiflo 8ml W/Thrombin 2994 - [id number] Implanted:Qt y: 1 on 04/27/2018 by Gabrielle Saeed MD at [facility] Hemostatic N/A: Spine Lumbar J&J- ETHICON INC 08/29/2019 [id number] / / [id number] Alif Plate 12mm Titanium Alloy Implanted:Qt y: 1 on 09/01/2017 by Devonte Barahona MD at [facility] Plate N/A: Spine Lumbar MEDTRONIC- SOFAMOR DANEK [id number] 06/22/2023 [id number] / / [id number] Description:REQUISIITON # 79 [id number] Screw 25mm Titanium Alloy Implanted:Qt y: 4 on 09/01/2017 by Devonte Barahona MD at [facility] Screw N/A: Spine Lumbar MEDTRONIC- SOFAMOR DANEK [id number] 07/02/2025 [id number] / / [id number] Description:REQUISITION# 792 9664 Set Screw Solera Perc 4.75mm [id number] - [id number] Implanted:Qt y: 4 on 09/01/2017 by Devonte Barahona MD at [facility] Screw N/A: Spine Lumbar MEDTRONIC- SOFAMOR DANEK [id number] / / [id number] STERILIZED 08-27-17 Description:REQUISITION # 79 39027 Sealant Floseal W/ Adptr 10ml [id number] - [id number] Implanted:Qt y: 1 on 08/20/2016 by Devonte Barahona MD at [facility] Sealant N/A: Back WILEY- BIOSCIENCE [id number] 01/28/2018 [id number] / / [id number] Infuse Protein Kit [id number] Implanted:Qt y: 1 on 09/01/2017 by Devonte Barahona MD at [facility] Tissue N/A: Spine Lumbar MEDTRON[employer]- SOFAMOR DANEK 09/27/2018 [id number] / / [id number] Infuse Protein Kit X-Small Implanted:Qt y: 1 on 09/01/2017 by Devonte Barahona MD at [facility] Tissue N/A: Spine Lumbar MEDTRONIC- SOFAMOR DANEK 09/27/2018 [id number] / / [id number] Knee Explanted Type Area Polygraph Technician Device Identifier Shelf Expiration Date Model / Serial / Lot 35mm Medtronic Dhruv Explanted:Qty: 1 on 09/01/2017 by Devonte Barahona MD at [facility] Dhruv N/A: Spine Lumbar MEDTRONIC INC [id number] / / [id number] STERILIZED 08-27-17 Description:REQUISIITON# 792 9664 35mm Medtronic Dhruv Implanted:Qty: 1 on 09/01/2017 by Devonte Barahona MD at [facility] Explanted:Qty: 1 on 04/27/2018 at [facility] Dhruv N/A: Spine Lumbar MEDTRONIC INC [id number] / / [id number] [id number] STERILIZED 08-27-17 Description:REQUISIITON# 792 9664 Screw Solera Umm Ma 7.5x40mm [id number] - Ssterilized Aug 27 2017 Implanted:Devonte Barahona MD (Quantity not on file) Explanted:Qty: 1 on 09/01/2017 by Devonte Barahona MD at [facility] Screw N/A: Spine Lumbar MEDTRONIC- SOFAMOR DANEK [id number] / STERILIZED AUG 27 2017 / LOAD 112 Description:REQUISITION # 79 12158 Screw Solera Umm Ma 7.5x35mm [id number] - Ssterilized Aug 27 2017 Implanted:Devonte Barahona MD (Quantity not on file) Explanted:Qty: 1 on 09/01/2017 by Devonte Barahona MD at [facility] Screw N/A: Spine Lumbar MEDTRONIC- SOFAMOR DANEK [id number] / STERILIZED AUG 27 2017 / LOAD 112 Description:REQUISIITON #792 9664 Set Screw Solera Perc 4.75mm [id number] - [id number] Explanted:Qty: 2 on 09/01/2017 by Devonte Barahona MD at [facility] Screw N/A: Spine Lumbar MEDTRONIC- SOFAMOR DANEK [id number] / / LOAD 112 STERILIZED 08-27-17 Screw Solera Umm Ma 7.5x35mm [id number] - Ssterilized Aug 27 2017 Implanted:Qty: 1 on 09/01/2017 by Devonte Barahona MD at [facility] Explanted:Qty: 1 on 04/27/2018 at [facility] Screw N/A: Spine Lumbar MEDTRONIC- SOFAMOR DANEK [id number] / STERILIZED AUG 27 2017 / LOAD 112 Description:REQUISITION# 792 9664 Screw Solera Umm Ma 7.5x40mm [id number] - Ssterilized Aug 27 2017 Implanted:Qty: 1 on 09/01/2017 by Devonte Barahona MD at [facility] Explanted:Qty: 1 on 04/27/2018 at [facility] Screw N/A: Spine Lumbar MEDTRONIC- SOFAMOR DANEK [id number] / STERILIZED AUG 27 2017 / LOAD 112 Description:REQUISITION# 792 9664 Insurance Advance Directives For more information, please contact: [phone] * Full Code (Latest Code Status on File) Date Activated Date Inactivated Comments 04/27/2018 11:46 AM 04/28/2018 3:19 PM * Full Code Date Activated Date Inactivated Comments 04/27/2018 6:48 AM 04/27/2018 11:46 AM * Full Code Date Activated Date Inactivated Comments 09/01/2017 9:14 PM 09/04/2017 7:28 PM * Full Code Date Activated Date Inactivated Comments 09/01/2017 12:04 PM 09/01/2017 9:14 PM * Full Code Date Activated Date Inactivated Comments 09/01/2017 11:54 AM 09/01/2017 12:04 PM Care Teams Corncob Pipe Supervisor Relationship Specialty Start Date End Date Sanjeev Viveros MD [address] [place] [id number] PCP - General Family Practice 08/18/16
--- OUTSIDE RECORDS SUMMARY | 2024-08-11 08:09 | XMS_ITS | Encounter Summary ---
Author Organization [facility] [employer] [facility] Address [address] [place] [address] Phone Care Team Providers Care Camp Manager Name Role Phone Krissy Viveros MD Primary Care Provider [phone] Marychuy Pepe MD Unavailable [phone] Encounter Details Date Type Department Care Team (Latest Contact Info) Description 04/13/2019 Orders Only [facility] Scanning, Provider Social History Tobacco Use Types Packs/Day Years [...] on file Legal Sex Female 12:14 AM BOOKING PRIZER Gender Identity Female 08/23/2020 11:17 AM CDT Sexual Orientation Straight 08/23/2020 11 :17 AM CDT documented as of this encounter Plan of Treatment Not on file documented as of this encounter Procedures Procedure Name Priority Date/Time Associated Diagnosis Comments SCAN - LABS 04/13/2019 documented in this encounter Results * SCAN - LABS (04/13/2019) us Provider Scanning Edited Result - Final documented in this encounter Visit Diagnoses Not on filedocumented in this encounter Care Teams Camp Manager Relationship Specialty Start Date End Date Krissy Viveros MD [address] [place] [address] PCP - General 08/26/17 Marychuy Pepe MD [address] [facility] [address] [place] [address] Medical Oncologist/Aircraft Inspection Record Clerk Medical Oncology 11/11/19 documented as of this encounter
--- OUTSIDE RECORDS SUMMARY | 2024-08-11 08:09 | XMS_ITS | Encounter Summary ---
Author Organization [facility] [facility] Address [address] [place] [address] Phone Care Team Providers Care Quality Tech Name Role Phone Krissy Viveros MD Primary Care Provider Marychuy Pepe MD Unavailable [phone] Encounter Details Date Type Department Care Team (Latest Contact Info) Description 11/26/2023 Orders Only [facility] Scanning, Provider [...] on file Legal Sex Female 12:14 AM SENIOR COMPUTER SPECIALIST Gender Identity Female 08/23/2020 11:17 AM CDT Sexual Orientation Straight 08/23/2020 11 :17 AM CDT documented as of this encounter Plan of Treatment Not on file documented as of this encounter Procedures Procedure Name Priority Date/Time Associated Diagnosis Comments SCAN - PATHOLOGY 11/26/2023 documented in this encounter Results * SCAN - PATHOLOGY (11/26/2023) us Provider Scanning Final Result documented in this encounter Visit Diagnoses Not on filedocumented in this encounter Care Teams Quality Tech Relationship Specialty Start Date End Date Krissy Viveros MD [address] [place] [address] PCP - General 08/26/17 Marychuy Pepe MD [address] [facility] [address] [place] [address] Medical Oncologist/Aviation Electronics Technician Medical Oncology 11/11/19 documented as of this encounter
[2024-08-11 19:34] LABS: Basophils Percent Auto 0.3 % (0.2-1.2); Eosinophils Absolute Auto 0.1 K/mm3 (0-0.3); Eosinophils Percent Auto 1.4 % (0-4.4); Hematocrit 41.9 % (37.0-47.0); Hemoglobin 13.3 g/dL (12.0-15.0); Immature Granulocyte Absolute 0.01 K/mm3 (0.00-0.031); Immature Granulocyte Percent A 0.2 % (0-0.5); Lymphocytes Absolute Auto 1.34 K/mm3 (0.9-3.2); Lymphocytes Percent Auto 22.9 % (18.3-44.2); Mean Corpuscular HGB Conc 31.7 g/dl (32-36); Mean Corpuscular Hemoglobin 29.8 pg (26-34); Mean Corpuscular Volume 93.9 fl (80-100); Mean Platelet Volume 10.9 fl (7.4-10.4); Monocytes Absolute Auto 0.4 K/mm3 (0.1-0.6); Monocytes Percent Auto 7.4 % (2.6-8.5); Neutrophils Percent Auto 67.8 % (45.5-73.1); Platelet Count Result 299 k/mm3 (150-375); Red Blood Count 4.46 M/mm3 (4.2-5.4); Red Cell Distribution Width 12.8 % (11.5-14.5); White Blood Count 5.9 K/mm3 (4.5-10.0)
[2024-08-11 19:52] LABS: Alanine Aminotransferase 24 U/L (6-35); Albumin Level 4.5 g/dL (3.5-5.1); Alkaline Phosphatase 74 U/L (38-126); Anion Gap 7 mmol/L (4-12); Aspartate Amino Transferase 45 U/L (14-36); Bilirubin,Total 0.4 mg/dL (0.2-1.3); Blood Urea Nitrogen 16 mg/dL (7-17); Calcium 9.4 mg/dL (8.4-10.2); Carbon Dioxide 27 mmol/L (22-30); Chloride 104 mmol/L (98-107); Cholesterol 288 mg/dL (0-200); Estimated Glomerular Filt Rate > 60; Glucose 101 mg/dL (65-110); HDL Direct 63 mg/dL; Sodium 138 mmol/L (137-145); Triglycerides 160 mg/dL (<150)
[2024-08-11 20:03] LABS: LDL Cholesterol Direct 150 mg/dL
[2024-08-11 20:48] LABS: Vitamin D 25 Hydroxy 43.8 ng/mL
[2024-08-11 21:01] LABS: Folic Acid 8.8 ng/mL (2.76->20)
== END 2024-08-11 08:05 | disposition home or self-care (01) ==
LOC: ANHGOSHLAB 08:06
PROVIDERS: PCP Nurse Practitioner; Visit Provider Nurse Practitioner
DX: E53.8 Deficiency of other specified B group vitamins (principal); Z13.228 Encounter for screening for other metabolic disorders; E78.2 Mixed hyperlipidemia; E55.9 Vitamin D deficiency, unspecified
CPT/HCPCS: 36415; 80053; 80061; 82306; 82607; 82746; 85025